=== PATIENT | male | born 1930 | race Caucasian/White ===

== ENCOUNTER 2018-01-15 09:18 | Emergency (ER) | payer MEDICARE ==
[~2018-01-15] VITALS: Ht 177.8 cm; Wt 72.6 kg
[2018-01-15] MEDS ORDERED: Colace100 MG PO (12:32)
[2018-01-15] MEDS ORDERED: Norco 5-325 Ta1 EACH PO (12:32)
== END 2018-01-15 12:50 | disposition home or self-care (01) ==
LOC: ER 09:18
DX: S22.029A Unspecified fracture of second thoracic vertebra, initial encounter for closed fracture (principal); S22.039A Unspecified fracture of third thoracic vertebra, initial encounter for closed fracture; S22.059A Unspecified fracture of T5-T6 vertebra, initial encounter for closed fracture; S01.01XD Laceration without foreign body of scalp, subsequent encounter; S51.812A Laceration without foreign body of left forearm, initial encounter; I10 Essential (primary) hypertension; W11.XXXA Fall on and from ladder, initial encounter
CPT/HCPCS: 72070; 99283-25